=== PATIENT | male | born 1950 | race Caucasian/White ===

== ENCOUNTER 2017-03-21 05:48 | Day surgery (SDC) | payer BC, MEDICARE ==
[2017-03-15 15:31] VITALS: BMI 27.1
--- NOTE | 2017-03-20 17:24 | HP ---
HISTORY AND PHYSICAL DATE OF SURGERY: 03/21/2017 Alon Mcgowan is a 66-year-old patient seen with progressive right shoulder pain. After having treatment options discussed, he elected to proceed with right shoulder arthroscopy. Consent regarding the procedure was obtained. PAST MEDICAL HISTORY: 1. Type 2 diabetes. 2. Gastroesophageal reflux disease. PAST SURGICAL HISTORY: 1. Herniorrhaphy. 2. Tonsillectomy. DAILY MEDICATIONS: 1. Glyburide. 2. Janumet. 3. Omeprazole. ALLERGIES: NONE REPORTED. SOCIAL HISTORY: The patient denies current tobacco use. PHYSICAL EVALUATION OF RIGHT SHOULDER: Flexion is 150 degrees, abduction 140 degrees, external rotation 10 degrees with pain and weakness. Tenderness along the anterolateral acromion and rotator cuff insertion site. Impingement sign is positive at 90 degrees. Drop-arm sign is positive. Distal neurovascular exam is intact. RADIOGRAPHS: Radiographs of the right shoulder revealed a type 2 anterior acromion, acromioclavicular joint osteoarthritis and cystic changes of the tuberosity. MRI right shoulder revealed rotator cuff tear, labral tear, partial biceps tendon tear and acromioclavicular joint osteoarthritis. IMPRESSION: Right shoulder impingement with rotator cuff tear, labral tear, partial biceps tendon tear and acromioclavicular joint osteoarthritis. PLAN: Right shoulder arthroscopy, subacromial decompression, probable arthroscopic rotator cuff repair, possible biceps tenotomy, Morgan procedure and debridement. MMODL / IJN: [id number] /
[~2017-03-21 05:48] MED LIST: ONDANSETRON 4 MG/2 ML VIAL IVP PRN; ceFAZolin IN SWFI 2 GM/20 ML SYRINGE IVP ONE
[2017-03-21] MEDS: LACTATED RINGERS 1,000 ML IV SCH ×2 (06:28→11:44)
[2017-03-21] MEDS ORDERED: LIDOCAINE 1% 20 ML VIAL (10MG/ML) FOR IV START INTRADERMA ONE (06:28)
[2017-03-21] MEDS ORDERED: DEXAMETHASONE SOD PHOSPHATE 10 MG/ML 1 ML VIAL IV ONE (06:33)
[2017-03-21 06:42] LABS: Glucose,Whole Blood 130 mg/dL (75-99)
[2017-03-21] MEDS ORDERED: fentaNYL (PF) 50 MCG/ML 2 ML AMP ONE (07:29)
[2017-03-21] MEDS ORDERED: LIDOCAINE 1% INJ 10MG/ML (20 ML MDV) ONE (07:29)
[2017-03-21] MEDS ORDERED: PROPOFOL 10 MG/ML 20 ML VIAL IV ONE (07:29)
[2017-03-21] MEDS ORDERED: SUCCINYLCHOLINE CHLORIDE 100 MG/5 ML SYR IV ONE (07:29)
[2017-03-21] MEDS ORDERED: MIDAZOLAM 2 MG/2 ML VIAL ONE (07:29)
--- NOTE | 2017-03-21 09:23 | P.OP ---
Date of Procedure: 03/21/17 Preoperative Diagnosis: Right shoulder impingement with rotator cuff tear Postoperative Diagnosis: 1. Right shoulder rotator cuff tear 2. Right shoulder impingement 3. Right shoulder partial long head biceps tendon tear 4. Right shoulder superficial superior labral tear 5. 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 Right shoulder arthroscopic rotator cuff repair 2. Right shoulder arthroscopic subacromial decompression 3. Right shoulder arthroscopic biceps tenotomy 4. Right shoulder arthroscopic debridement labral tear 5. Right shoulder arthroscopic chondroplasty glenoid fossa Implants: 4-4.5 peek anchors Anesthesia: KEVIN, local Surgeon: Wiliam Donovan Credentialing Specialist #1: Titus Field Estimated Blood Loss (ml): 20 Pathology: none sent Condition: stable Disposition: PACU Indications for Procedure: 66-year-old patient seen with progressive right shoulder pain. After treatment options were discussed, he elected to proceed with arthroscopy. Operative Findings: see description of procedure Description of Procedure: Patient underwent a shoulder block by department of anesthesia. The patient was then taken to the operative suite. The patient underwent a general anesthetic by the department of anesthesia. The patient was placed into a lateral position and secured. There was appropriate padding of the bony prominence. Right shoulder was then prepped and draped in normal sterile orthopedic fashion. We placed the extremity in 10 pounds of longitudinal traction. A posterior incision was now made for a posterior working portal site. The trocar and cannula were inserted into the glenohumeral joint. Arthroscopy was initiated. Spinal needle was now inserted anteriorly, to ascertain the anterior working portal site. An incision was now made in that area, a trocar was inserted followed by a probe. Was superficial tearing of the superior labrum. There was an area of grade 1/2 chondromalacia glenoid fossa anterior centrally with some small osteochondral tears. The posterior, inferior and superior labrum appeared intact. The humeral head had grade 1 chondromalacia but no osteochondral tears. There was partial tearing noted long head biceps tendon with hyperemia. There was an obvious large rotator cuff tear clearly visualized from glenohumeral side. I performed an arthroscopic biceps tenotomy. I debrided the superficial labral tear down to stable tissue. I performed a chondroplasty of the glenoid fossa down to stable osteochondral tissue. The residual labrum and osteochondral surface was stable. Instruments were now removed from the glenohumeral joint. Utilizing the posterior working portal site, the trocar and cannula were inserted into the subacromial space. Arthroscopy initiated. I made an incision 2 fingerbreadths lateral to the acromion. I introduced my trocar followed by my [employer] ablator. I now began ablating thick subacromial bursal tissue, which exposed the undersurface of the anterior acromion. This was diminished subacromial space. There was a very prominent anterior acromion. A motorized bur was introduced and a subacromial decompression was performed. I also excised some osteophytes off the inferior aspect of the distal clavicle. The AC joint was visualized and noted to be moderately arthritic. I did not think enough toward a Morgan procedure. I now turned my attention to the rotator cuff tendon. There was a 2.5-3 cm tear along the distal supraspinatus. It was barely mobile over the footprint. I performed a release and then I was able to pull the tendon over the footprint. I debrided the anterior and posterior margins down to stable tissue. I abraded the footprint with a motorized bur. I created an pipe line gauger he portal site off the lateral acromion. I introduced 2 medial row anchors with 2 sutures each. I passed all 8 limbs of suture through good bites of rotator cuff tendon. I now crisscrossed the sutures and introduced 2 lateral anchors compressing the tendon along the footprint very nicely. Residual suture limbs were clipped. The repair was probed and found to be stable. Instruments now removed from the portal sites. All portal sites were approximated with nylon suture. Sterile dressings were applied followed by a shoulder immobilizer. Adrian LOVE assisted with the procedure. The patient was awakened, transferred to a bed, and taken to recovery in stable condition.
[2017-03-21 09:30] VITALS: TEMP 97
[2017-03-21] MEDS: HYDROmorphone 1 MG/ML 1 ML SYRINGE IVP PRN ×6 (09:32→10:08)
[2017-03-21] MEDS ORDERED: LACTATED RINGERS 1,000 ML IV ONE (09:38)
[2017-03-21] MEDS ORDERED: ONDANSETRON 4 MG/2 ML VIAL IVP ONE (09:55)
[2017-03-21 10:03] VITALS: RESP 16
[2017-03-21 10:03] LABS: Glucose,Whole Blood 174 mg/dL (75-99)
[2017-03-21] MEDS ORDERED: HYDROcodone/APAP 7.5-325MG 1 EACH TAB PO ONE (11:14)
[2017-03-21 12:50] VITALS: BP 132/74; PULSE 90
== END 2017-03-21 12:56 | disposition home or self-care (01) ==
LOC: OR 05:48
PROVIDERS: ATTEND Orthopaedic Surgery
DX: M75.101 Unspecified rotator cuff tear or rupture of right shoulder, not specified as traumatic (principal); M25.811 Other specified joint disorders, right shoulder; S46.111A Strain of muscle, fascia and tendon of long head of biceps, right arm, initial encounter; S43.431A Superior glenoid labrum lesion of right shoulder, initial encounter; X58.XXXA Exposure to other specified factors, initial encounter; M25.711 Osteophyte, right shoulder; M94.211 Chondromalacia, right shoulder; J45.909 Unspecified asthma, uncomplicated; E11.9 Type 2 diabetes mellitus without complications; Z79.84 Long term (current) use of oral hypoglycemic drugs; K21.9 Gastro-esophageal reflux disease without esophagitis; Z79.899 Other long term (current) drug therapy
CPT/HCPCS: 29826; 29827; C1894; C1713 ×2; J2250; J1100; J0690; J2405; J2001; J3010; J1170; J0330; J2704

== ENCOUNTER → 2019-05-09 | Outpatient (CLI) | payer BC, MEDICARE ==
--- NOTE | 2019-05-10 10:46 | MR ---
EXAMINATION TYPE: MR cervical spine wo con DATE OF EXAM: 05/09/2019 COMPARISON: None HISTORY: Neck/lt shoulder pain TECHNIQUE: Multiplanar, multisequence images of the cervical spine were acquired. C2-C3: Degenerative disc disease. No foraminal encroachment, disc herniation or canal stenosis. Mild uncovertebral joint hypertrophy. C3-C4: Degenerative disc disease and uncovertebral joint hypertrophy. Facet arthropathy on the left r esulting in moderate to severe left-sided foraminal protrusion. No disc herniation. No Canal stenosis . C4-C5: Degenerative disc disease with bilateral facet arthropathy greater on the left. Bilateral unco vertebral joint hypertrophy results in mild to moderate bilateral foraminal encroachment. No Canal st enosis. No focal herniation. Minimal central disc bulging. C5-C6: Severe degenerative disc disease with broad-based disc protrusion capped by spur. Facet arthro sunitha and uncovertebral joint hypertrophy contribute to severe bilateral foraminal encroachment. Ther e is moderate to severe central stenosis. C6-C7: Broad-based disc herniation with uncovertebral joint hypertrophy and facet arthropathy. Severe canal stenosis and cord compression. There is severe bilateral foraminal encroachment. Severe degene rative disc disease. C7-T1: Broad-based disc protrusion with uncovertebral joint hypertrophy. There is mild effacement of thecal sac. There is mild canal stenosis and severe bilateral foraminal encroachment. Cervical segments are intact. There is curvature of the visualized portions of the cervical thoracic spine. Cervical spinal cord is of normal signal. Craniovertebral junction relationships are within normal limits. IMPRESSION: 1. Multilevel moderate to severe degenerative disc disease most marked at C5-6 and C6-C7. At both the se levels of central disc protrusion or herniations with hypertrophic changes result in spinal cord c ompression with severe canal stenosis and bilateral severe foraminal encroachment. 2. Disc broad-based protrusion C7-T1 with mild effacement of thecal sac and canal stenosis. Significa nt bilateral foraminal encroachment. 3. Multilevel facet arthropathy and uncovertebral joint hypertrophy at the remaining levels. Multilev el foraminal encroachment resulting in moderate to severe left-sided foraminal encroachment C3-4 and [id number] bilateral foraminal encroachment at C4-C5..
== END | disposition home or self-care (01) ==
LOC: RADMRIMAIN 19:50
PROVIDERS: ATTEND Orthopaedic Surgery
DX: M48.02 Spinal stenosis, cervical region (principal); M50.23 Other cervical disc displacement, cervicothoracic region; M50.322 Other cervical disc degeneration at C5-C6 level; M46.92 Unspecified inflammatory spondylopathy, cervical region
CPT/HCPCS: 72141